=== PATIENT | female | born 1940 | race Caucasian/White ===

== ENCOUNTER → 2016-10-18 | Emergency (ER) | payer MEDICARE ==
[~2016-10-18] MED LIST: cefTRIAXone\\ROCEPHIN 1 GM VIAL ONE
[2016-10-18 15:50] LABS: #Basophils 0.1 thou/uL (0.0-0.2); #Eosinphils 0.2 thou/uL (0.0-0.7); #Lymphocytes 2.3 thou/uL (1.20-3.40); #Monocytes 0.8 thou/uL (0.11-0.59); #Neutrophils 7.3 thou/uL (1.40-6.50); %Basophils 0.7 % (0.0-1.0); Hematocrit 42.7 % (36.0-47.0); Mean Platelet Volume 5.7 fL (7.4-10.4); Red Blood Cell (RBC) Count 4.49 mill/uL (4.20-5.40); White Blood Cell (WBC) Count 10.7 thou/uL (4.8-10.8)
[2016-10-18 15:55] LABS: PTT 26.6 SEC (22.9-36.1); Prothrombin Time 12.9 SEC (12.0-14.7)
[2016-10-18 15:55] LABS: Bilirubin Negative (Negative); Blood, Urine Trace (Negative); Glucose, Urine (Dipstick) Negative (Negative); Ketone, Urine Negative (Negative); Nitrite Positive (Negative); Protein, Urine (Dipstick) Negative (Neg-Trace); Urobilinogen 0.2 mg/dL (0.2-1.0)
[2016-10-18 16:04] LABS: Bacteria/HPF 3+ HPF (None Seen); Hyaline Casts/LPF NONE SEEN LPF (0-3 Hyaline); Oval Fat Bodies/HPF None Seen HPF (None Seen); RBC/HPF 0-3 HPF (0-3); Renal Epithelial None Seen HPF (0-3); Sperm/HPF None Seen HPF (None Seen); Squamous Epithelial None Seen HPF (0-3); Transitional Epithelial NONE SEEN HPF (0-3); Trichomonas/HPF None Seen HPF (None Seen); Yeast-All Forms None Seen HPF (None Seen)
[2016-10-18 16:04] LABS: ALT (SGPT) 16 U/L (0-55); AST (SGOT) 21 U/L (5-34); Alkaline Phosphatase 86 U/L (40-150); Anion Gap 12 mmol/L (10-20); BUN (Urea Nitrogen) 13 mg/dL (9.8-20.1); Bilirubin, Total 0.4 mg/dL (0.2-1.2); CK (CPK) 124 U/L (29-168); Calc. Creatinine Clearance 0 mL/min (70-130); Calcium 9.3 mg/dL (7.8-10.44); Carbon Dioxide 29 mmol/L (23-31); Chloride 101 mmol/L (98-107); Estimated GFR-MDRD 65; Globulin 3.2 g/dL (2.4-3.5); Lipase 55 U/L (8-78); Protein, Total 7.3 g/dL (5.8-8.1)
[2016-10-18 16:05] LABS: Troponin I Less than 0.010 ng/mL (< 0.028)
--- NOTE | 2016-10-18 21:48 | RAD ---
PORTABLE CHEST: Date: 10-18-16 An AP portable film at 1527 is compared with a 05-28-11 study from [facility]. FINDINGS: Cardiomegaly is about the same as before. I do not see any pulmonary edema. The vessels are probab ly not congested. It is difficult to evaluate the left lateral hemithorax as the patient is turned slightly. There are no large effusions. IMPRESSION: Cardiomegaly without definite acute finding. POS: HOME
== END ==
LOC: BURERS 14:48
DX: N10 Acute pyelonephritis (principal); F41.9 Anxiety disorder, unspecified
CPT/HCPCS: 71010; 80053; 81003; 81015; 82553; 83690; 83880; 84484; 85025; 85379; 85610; 85730; 87040; 87077; 87086; 87186; 93005; 96365; 96375; J0696; J2270

== ENCOUNTER 2016-10-24 20:37 | Inpatient (IN) | payer MEDICARE ==
[2016-10-24] MEDS ORDERED: Ondansetron HCl/PF 4 MG/2 ML Vial ONE (21:02)
[2016-10-24] MEDS ORDERED: Sodium Chloride 0.9% 100 ML ONE (21:02)
[2016-10-24] MEDS ORDERED: cefTRIAXone\\ROCEPHIN 1 GM VIAL ONE (21:02)
[2016-10-24 21:34] LABS: #Basophils 0.1 thou/uL (0.0-0.2); #Eosinphils 0.1 thou/uL (0.0-0.7); #Lymphocytes 1.1 thou/uL (1.20-3.40); #Monocytes 0.9 thou/uL (0.11-0.59); #Neutrophils 8.5 thou/uL (1.40-6.50); %Basophils 0.8 % (0.0-1.0); %Eosinophils 0.7 % (0.0-10.0); %Monocytes 8.4 % (0.0-10.0); Hematocrit 36.8 % (36.0-47.0); Mean Platelet Volume 5.8 fL (7.4-10.4); Red Blood Cell (RBC) Count 3.97 mill/uL (4.20-5.40); White Blood Cell (WBC) Count 10.6 thou/uL (4.8-10.8)
[2016-10-24 21:53] LABS: ALT (SGPT) 19 U/L (0-55); AST (SGOT) 32 U/L (5-34); Alkaline Phosphatase 84 U/L (40-150); Anion Gap 18 mmol/L (10-20); BUN (Urea Nitrogen) 12 mg/dL (9.8-20.1); Bilirubin, Total 0.5 mg/dL (0.2-1.2); Calc. Creatinine Clearance 0 mL/min (70-130); Calcium 9.3 mg/dL (7.8-10.44); Carbon Dioxide 19 mmol/L (23-31); Chloride 96 mmol/L (98-107); Estimated GFR-MDRD 59; Globulin 3.4 g/dL (2.4-3.5); Protein, Total 7.3 g/dL (5.8-8.1)
[2016-10-24] MEDS ORDERED: Acetaminophen 325 MG TAB PO PRN (23:10)
[2016-10-24] MEDS ORDERED: Ondansetron ODT 4 MG TAB SL PRN (23:10)
[2016-10-24] MEDS ORDERED: Ondansetron HCl/PF 4 MG/2 ML Vial IVP PRN (23:10)
[2016-10-24] MEDS ORDERED: ALPRAZolam 0.5 MG TAB PO SCH (23:45)
[2016-10-25] MEDS: Dextrose 5 %-0.45 % NaCl 1,000 ML IV SCH ×2 (00:07→12:18)
--- NOTE | 2016-10-25 00:24 | RAD ---
PORTABLE CHEST: Date: 10-24-16 FINDINGS: AP portable film at 2050 is compared with the 10-18-16 study. There has been interval change in the interval. Mild cardiomegaly is about the same as before. The re is no clear congestive change. Elevation of the left hemidiaphragm is chronic. One could argue that there may be a little haziness in the left lower chest, but it would probably take a CT in this patient to completely rule out any infiltrate or pathology here. There are no large effusions. Th e trachea is midline. IMPRESSION: 1. Mild cardiomegaly. 2. Equivocal slight haziness in the left base. POS: HOME
[2016-10-25 06:20] LABS: #Basophils 0.1 thou/uL (0.0-0.2); #Eosinphils 0.2 thou/uL (0.0-0.7); #Lymphocytes 1.1 thou/uL (1.20-3.40); #Monocytes 0.8 thou/uL (0.11-0.59); #Neutrophils 4.5 thou/uL (1.40-6.50); %Eosinophils 3.3 % (0.0-10.0); Hematocrit 33.7 % (36.0-47.0); Mean Platelet Volume 5.5 fL (7.4-10.4); Red Blood Cell (RBC) Count 3.63 mill/uL (4.20-5.40); White Blood Cell (WBC) Count 6.7 thou/uL (4.8-10.8)
[2016-10-25 07:24] LABS: Anion Gap 15 mmol/L (10-20); BUN (Urea Nitrogen) 8 mg/dL (9.8-20.1); Calc. Creatinine Clearance 63 mL/min (70-130); Calcium 8.2 mg/dL (7.8-10.44); Carbon Dioxide 21 mmol/L (23-31); Chloride 103 mmol/L (98-107); Estimated GFR-MDRD 72
[2016-10-25] MEDS ORDERED: Acetaminophen 325 MG TAB PO PRN (08:47)
[2016-10-25] MEDS: Aspirin 325 MG TAB PO SCH (10:28)
[2016-10-25] MEDS: Ezetimibe 10 MG TAB PO SCH (10:28)
[2016-10-25] MEDS: Metoprolol Tartrate 25 MG TAB PO SCH ×2 (10:28→21:59)
[2016-10-25] MEDS: Atorvastatin Calcium 40 MG TAB PO SCH (10:29)
[2016-10-25] MEDS: Multivitamin W/ Minerals 1 TAB PO SCH (10:30)
[2016-10-25] MEDS: ALPRAZolam 0.5 MG TAB PO PRN ×2 (13:59→22:00)
[2016-10-25] MEDS: cefTRIAXone\\ROCEPHIN 1 GM in Sodium Chloride 0.9% 100 ML IVPB SCH (21:59)
[2016-10-26] MEDS: Dextrose 5 %-0.45 % NaCl 1,000 ML IV SCH ×2 (01:21→14:16)
[2016-10-26 05:25] VITALS: BMI 27.3
[2016-10-26] MEDS: Atorvastatin Calcium 40 MG TAB PO SCH (08:04)
[2016-10-26] MEDS: Multivitamin W/ Minerals 1 TAB PO SCH (08:04)
[2016-10-26] MEDS: Aspirin 325 MG TAB PO SCH (08:04)
[2016-10-26] MEDS: Metoprolol Tartrate 25 MG TAB PO SCH ×2 (08:05→20:20)
[2016-10-26] MEDS: ALPRAZolam 0.5 MG TAB PO PRN ×2 (08:05→20:19)
[2016-10-26] MEDS: Ezetimibe 10 MG TAB PO SCH (08:05)
[2016-10-26] MEDS: cefTRIAXone\\ROCEPHIN 1 GM in Sodium Chloride 0.9% 100 ML IVPB SCH (20:24)
[2016-10-26] MEDS ORDERED: Donepezil HCl 10 MG TAB PO SCH (21:00)
[2016-10-27] MEDS: Dextrose 5 %-0.45 % NaCl 1,000 ML IV SCH (01:15)
[2016-10-27 06:32] VITALS: BP 145/74; TEMP 97.6
[2016-10-27] MEDS: Metoprolol Tartrate 25 MG TAB PO SCH (09:17)
[2016-10-27] MEDS: Aspirin 325 MG TAB PO SCH (09:17)
[2016-10-27] MEDS: Atorvastatin Calcium 40 MG TAB PO SCH (09:17)
[2016-10-27] MEDS: Multivitamin W/ Minerals 1 TAB PO SCH (09:18)
[2016-10-27] MEDS: ALPRAZolam 0.5 MG TAB PO PRN (09:18)
[2016-10-27] MEDS: Ezetimibe 10 MG TAB PO SCH (09:18)
== END 2016-10-27 13:30 | disposition home or self-care (01) | DRG 690 ==
LOC: BURERS 20:37 → BURMED 22:46
PROVIDERS: ADMIT Family Medicine; ATTEND Family Medicine
DX: N39.0 Urinary tract infection, site not specified (principal); E87.1 Hypo-osmolality and hyponatremia; G30.9 Alzheimer's disease, unspecified; F02.80 Dementia in other diseases classified elsewhere, unspecified severity, without behavioral disturbance, psychotic disturbance, mood disturbance, and anxiety; N12 Tubulo-interstitial nephritis, not specified as acute or chronic; F20.9 Schizophrenia, unspecified; R41.82 Altered mental status, unspecified; I10 Essential (primary) hypertension; I25.10 Atherosclerotic heart disease of native coronary artery without angina pectoris; F41.9 Anxiety disorder, unspecified; Z95.2 Presence of prosthetic heart valve; R11.2 Nausea with vomiting, unspecified; Z79.82 Long term (current) use of aspirin
CPT/HCPCS: 36415; 51701; 71010; 80048; 80053; 83605; 83690; 85025; 87040; 87086; 94760; 96361; 96365; 96375; A4216; A4353; J0696; J2405; J7050

== ENCOUNTER 2016-10-30 08:04 | Emergency (ER) | payer MEDICARE ==
[2016-10-30 08:31] LABS: Bilirubin Negative (Negative); Blood, Urine Trace (Negative); Glucose, Urine (Dipstick) Negative (Negative); Ketone, Urine Negative (Negative); Nitrite Negative (Negative); Protein, Urine (Dipstick) Negative (Neg-Trace); Urobilinogen 0.2 mg/dL (0.2-1.0)
[2016-10-30 08:39] LABS: RBC/HPF 0-3 HPF (0-3); WBC/HPF None Seen HPF (0-3)
[2016-10-30 08:40] LABS: Bacteria/HPF Rare-Few HPF (None Seen); Hyaline Casts/LPF 0-3 HYALINE CAST LPF (0-3 Hyaline); Squamous Epithelial 0-3 HPF (0-3)
[2016-10-30 09:02] LABS: Lactic Acid - Sepsis 1.3 mmol/L (0.5-2.2)
[2016-10-30 09:06] LABS: ALT (SGPT) 22 U/L (0-55); AST (SGOT) 28 U/L (5-34); Alkaline Phosphatase 91 U/L (40-150); Anion Gap 16 mmol/L (10-20); BUN (Urea Nitrogen) 5 mg/dL (9.8-20.1); Bilirubin, Total 0.6 mg/dL (0.2-1.2); Calc. Creatinine Clearance 0 mL/min (70-130); Calcium 9.8 mg/dL (7.8-10.44); Carbon Dioxide 23 mmol/L (23-31); Chloride 101 mmol/L (98-107); Estimated GFR-MDRD 68; Globulin 3.8 g/dL (2.4-3.5); Lipase 49 U/L (8-78); Protein, Total 7.9 g/dL (5.8-8.1)
[2016-10-30 09:12] LABS: Mean Platelet Volume 5.3 fL (7.4-10.4); Neutrophil 78 % (42-75); Red Blood Cell (RBC) Count 4.44 mill/uL (4.20-5.40); White Blood Cell (WBC) Count 9.4 thou/uL (4.8-10.8)
--- NOTE | 2016-10-30 10:33 | CT ---
CT ABDOMEN AND PELVIS WITH CONTRAST: Date: 10/30/[address] of the abdomen and pelvis was performed for evaluation of lower abdominal and back pain. A xial slices were acquired after giving IV contrast. Oral contrast was withheld by request. Coronal r econstructions were done. FINDINGS: The lung bases are clear, except for some areas of scarring and atelectasis in the lower lobes. Ther e may even be a trace of bronchiectasis in the posterior portion of the right lower lobe. The liver, spleen, pancreas, adrenal glands, kidneys, and abdominal aorta showed no acute findings. Arteriosclerotic change is seen in the aorta. There has been a prior cholecystectomy. There is a moderate amount of fluid in the colon, especially the right colon, but it is not signific antly distended. There is certainly no sign of karla obstruction. No free air or free fluid seen. No bowel wall thickening was appreciated. The colon is rather redundant. A small, fat-filled ventral h ernia is seen in the midline at about the L2 level. CT of the pelvis was remarkable for a very distended urinary bladder. No pelvic masses were seen. No inflammatory changes or free fluid were evident. Regarding the lumbar spine, there is certainly some degenerative change and perhaps a little bit of ligamentous hypertrophy and concentric disc bulge at L4-L5, but there is no severe spinal stenosis o r obvious protruding discs to explain the patient's back pain. IMPRESSION: 1. Significantly distended urinary bladder. 2. Nonspecific fluid-filled colon without evidence of obstruction. POS: HOME
== END 2016-10-30 10:18 | disposition home or self-care (01) ==
LOC: BURERS 08:04
DX: M54.5 Low back pain (principal); T36.8X5A Adverse effect of other systemic antibiotics, initial encounter; E78.5 Hyperlipidemia, unspecified; E78.00 Pure hypercholesterolemia, unspecified; I10 Essential (primary) hypertension; I25.10 Atherosclerotic heart disease of native coronary artery without angina pectoris; F41.9 Anxiety disorder, unspecified; Z79.2 Long term (current) use of antibiotics; Z79.82 Long term (current) use of aspirin; Z79.899 Other long term (current) drug therapy
CPT/HCPCS: 51702; 74177; 80053; 81003; 81015; 83605; 83690; 85025; 87086; A4353

== ENCOUNTER 2017-01-23 20:34 | Emergency (ER) | payer MEDICARE ==
[2017-01-23 21:17] LABS: #Basophils 0.1 thou/uL (0.0-0.2); #Eosinphils 0.3 thou/uL (0.0-0.7); #Lymphocytes 2.4 thou/uL (1.20-3.40); #Monocytes 0.8 thou/uL (0.11-0.59); #Neutrophils 7.8 thou/uL (1.40-6.50); %Basophils 0.8 % (0.0-1.0); %Eosinophils 3.1 % (0.0-10.0); %Lymphocytes 20.8 % (21.0-51.0); %Monocytes 6.8 % (0.0-10.0); %Neutrophils 68.6 % (42.0-75.0); Hemoglobin 13.5 g/dL (12.0-16.0); Mean Corpuscular Hemoglobin 30.7 pg (27.0-31.0); Mean Corpuscular Volume 92.9 fl (81.0-99.0); Mean Platelet Volume 7.6 fL (7.4-10.4); Platelet Count 280 thou/uL (130-400); RBC Distribution Width 13.5 % (11.5-14.5); Red Blood Cell (RBC) Count 4.41 mill/uL (4.20-5.40); White Blood Cell (WBC) Count 11.3 thou/uL (4.8-10.8)
[2017-01-23 21:25] LABS: INR-International Normal Ratio 1.2; PTT 27.5 SEC (22.9-36.1); Prothrombin Time 15.4 SEC (12.0-14.7)
[2017-01-23 21:33] LABS: ALT (SGPT) 21 U/L (8-55); AST (SGOT) 28 U/L (5-34); Albumin 3.9 g/dL (3.4-4.8); Alkaline Phosphatase 97 U/L (40-150); Anion Gap 17 mmol/L (10-20); BUN (Urea Nitrogen) 18 mg/dL (9.8-20.1); Bilirubin, Total 0.3 mg/dL (0.2-1.2); Calc. Creatinine Clearance 0 mL/min (70-130); Calcium 9.1 mg/dL (7.8-10.44); Carbon Dioxide 21 mmol/L (23-31); Chloride 104 mmol/L (98-107); Estimated GFR-MDRD 63; Globulin 3.2 g/dL (2.4-3.5); Glucose 124 mg/dL (83-110); Potassium 4.3 mmol/L (3.5-5.1); Protein, Total 7.1 g/dL (6.0-8.3); Sodium 138 mmol/L (136-145)
[2017-01-23 21:34] LABS: CKMB 1.7 ng/mL (0-6.6); Troponin I Less than 0.010 ng/mL (< 0.028)
[2017-01-23 21:57] LABS: Bilirubin Negative (Negative); Blood, Urine Negative (Negative); Clarity Clear (Clear); Glucose, Urine (Dipstick) Negative (Negative); Leukocyte Negative (Negative); Nitrite Negative (Negative); Protein, Urine (Dipstick) Negative (Neg-Trace); Specific Gravity, Urine 1.015 (1.005-1.030); Urobilinogen 0.2 mg/dL (0.2-1.0)
--- NOTE | 2017-01-23 23:04 | CT ---
CT BRAIN WITHOUT CONTRAST: Comparison: 01-09-17 History: Dizziness. Fall a few hours ago. Technique: Multiple contiguous axial images were obtained in a CT of the brain without contrast. FINDINGS: There are scattered hypodensities in subcortical and periventricular white matter, likely secondary to small vessel ischemic disease. Diffuse atrophy is seen. There is no evidence of hydrocephalus, in tracranial hemorrhage, or extraaxial fluid collections. The calvarium and overlying soft tissues are unremarkable. The visualized paranasal sinuses and mast oid air cells are well aerated. IMPRESSION: No evidence of acute intracranial abnormality. POS: [facility]
--- NOTE | 2017-01-23 23:07 | CT ---
CT OF THE CERVICAL SPINE WITHOUT CONTRAST: Comparison: None. History: Fell a few hours ago after she was dizzy. Neck pain. Technique: Multiple contiguous axial images were obtained in a CT of the cervical spine without con trast. Sagittal and coronal reformats were performed. FINDINGS: Moderate degenerative changes were seen in the cervical spine. The vertebral bodies demonstrate norm al height and alignment without fracture or subluxation. No prevertebral soft tissue swelling is see n. The posterior facets are well aligned. Normal alignment of the skull base with the cervical spine is seen. Scarring is seen in the lung apices. There is a calcified thyroid nodule in the right thyroid globe. IMPRESSION: 1. Degenerative changes of the cervical spine without acute osseous abnormality. POS: [facility]
--- NOTE | 2017-01-23 23:10 | CT ---
CT OF THE FACE WITHOUT CONTRAST: Comparison: None. History: Dizziness a few hours ago and fall with facial pain and trauma. Technique: Multiple contiguous axial images were obtained in a CT of the face without contrast. Sagi ttal and coronal reformats were performed. FINDINGS: No facial fractures identified. The paranasal sinuses are well aerated without opacification or muco alfredo thickening. The bilateral mastoid air cells are well aerated. The mandibular joints are symmetri c. The globes and retrobulbar soft tissues are unremarkable. Mild soft tissues swelling is seen in the forehead. IMPRESSION: No evidence of facial fracture. POS: [facility]
--- NOTE | 2017-01-23 23:11 | RAD ---
TWO VIEWS LEFT HUMERUS: Comparison: None. FINDINGS: Fall, left arm pain. FINDINGS: Two views of the left humerus shows no evidence of acute fracture or dislocation. No degenerative ch anges are seen in the elbow or shoulder. IMPRESSION: Unremarkable exam. POS: [facility]
--- NOTE | 2017-01-23 23:12 | RAD ---
SINGLE VIEW OF THE CHEST: Comparison: 01-08-17 History: Syncope. FINDINGS: Single view of the chest shows a normal sized cardiomediastinal silhouette. The patient is status po st sternotomy. There is no evidence of consolidation, mass, or pleural effusions. IMPRESSION: 1. No evidence of acute cardiopulmonary disease. POS: [facility]
--- NOTE | 2017-01-23 23:13 | RAD ---
THREE VIEWS LEFT HAND: Comparison: None. History: Left hand pain after fall. FINDINGS: Three views of the left hand shows no evidence of acute fracture or dislocation. No significant dege nerative changes are seen. No focal soft tissue swelling is seen. There is mild diffuse soft tissue swelling. IMPRESSION: No evidence of acute osseous abnormality. POS: [facility]
== END 2017-01-23 23:00 ==
LOC: BURERS 20:34
DX: R55 Syncope and collapse (principal); S60.222A Contusion of left hand, initial encounter; S80.02XA Contusion of left knee, initial encounter; S80.01XA Contusion of right knee, initial encounter; S00.83XA Contusion of other part of head, initial encounter; E78.5 Hyperlipidemia, unspecified; I10 Essential (primary) hypertension; I25.10 Atherosclerotic heart disease of native coronary artery without angina pectoris; Z79.899 Other long term (current) drug therapy; W17.89XA Other fall from one level to another, initial encounter
CPT/HCPCS: 51701; 70450; 70486; 71010; 72125; 80053; 81003; 82553; 83605; 84484; 85025; 85610; 85730; 93005; 94760; A4353

== ENCOUNTER 2018-12-25 13:40 | Emergency (ER) | payer MEDICARE ==
[2018-12-25 14:19] LABS: Bacteria/HPF 4+ HPF (None Seen); Bilirubin Negative (Negative); Blood, Urine Trace (Negative); Clarity Cloudy (Clear); Crystals/HPF None Seen HPF (Negative); Glucose, Urine (Dipstick) Negative (Negative); Hyaline Casts/LPF NONE SEEN LPF (0-3 Hyaline); Leukocyte Large (Negative); Nitrite Positive (Negative); Other Casts/LPF None Seen LPF (0-3 Hyaline); Oval Fat Bodies/HPF None Seen HPF (None Seen); Protein, Urine (Dipstick) 30 mg/dL (Neg-Trace); Renal Epithelial None Seen HPF (0-3); Specific Gravity, Urine 1.015 (1.005-1.030); Sperm/HPF None Seen HPF (None Seen); Squamous Epithelial 0-3 HPF (0-3); Transitional Epithelial NONE SEEN HPF (0-3); Trichomonas/HPF None Seen HPF (None Seen); Urobilinogen 0.2 mg/dL (0.2-1.0); Yeast-All Forms None Seen HPF (None Seen)
[2018-12-25] MEDS ORDERED: Cephalexin 500 MG CAP ONE (14:39)
== END 2018-12-25 16:00 | disposition home or self-care (01) ==
LOC: BURERS 13:40
DX: N12 Tubulo-interstitial nephritis, not specified as acute or chronic (principal); E78.5 Hyperlipidemia, unspecified; I10 Essential (primary) hypertension; I25.10 Atherosclerotic heart disease of native coronary artery without angina pectoris; F03.90 Unspecified dementia, unspecified severity, without behavioral disturbance, psychotic disturbance, mood disturbance, and anxiety; F41.9 Anxiety disorder, unspecified; F20.9 Schizophrenia, unspecified; Z79.82 Long term (current) use of aspirin; Z79.899 Other long term (current) drug therapy
CPT/HCPCS: 81003; 81015; 87077; 87086; 87186; 99283

== ENCOUNTER 2019-01-01 12:45 | Outpatient (CLI) | payer MEDICARE ==
--- NOTE | 2019-01-01 21:23 | RAD ---
THORACIC SPINE THREE VIEWS: Date: 01-01-19 FINDINGS: There is nearly complete collapse of a vertebrae at the thoracolumbar junction. It is most likely L1. There is complete loss of height anteriorly and minimal height remaining posteriorly. There is a mil d anterior compression of the superior endplate of T11. This was present on a 10-30-16 scan of the [facility]. The mid to upper thoracic spine is not seen well but there is dorsal kyphosis and suggestion of the compression of T6. IMPRESSION: 1. Nearly complete anterior compression of the L1 vertebral body, there was slight compression of thi s vertebrae in 2017, thus, it has progressed markedly in the interval. 2. Minimal compression of the superior endplate of T11. No change from 2017. 3. Not see well, but probable significant compression of T6. Code T POS: HOME
== END 2019-01-01 12:46 | disposition home or self-care (01) ==
LOC: BURRAD 12:45
PROVIDERS: ATTEND Nurse Practitioner Family
DX: M54.6 Pain in thoracic spine (principal); Z91.81 History of falling
CPT/HCPCS: 72072

== ENCOUNTER 2019-01-12 10:41 | Emergency (ER) | payer MEDICARE ==
[2019-01-12] MEDS ORDERED: Bacitracin Zinc 1 Packet ONE (11:00)
[2019-01-12] MEDS ORDERED: Acetaminophen 500 MG TAB ONE (11:06)
--- NOTE | 2019-01-12 12:55 | RAD ---
PA AND LATERAL CHEST XRAY: DATE: 01/12/2019. HISTORY: Chest pain after a fall. COMPARISON: 01/23/2017. FINDINGS: Postsurgical changes related to median sternotomy are again noted. Vascular calcifications are again seen in a tortuous thoracic aorta. There are linear densities seen at each lung base which may be r elated to mild atelectasis versus scarring. No consolidation or pleural fluid is appreciated. Osteo penia is noted. There are severe wedge-shaped compression fractures involving the T6, T10, and L1 vertebral bodies with greater than 75% loss of height of these vertebral bodies. The degree of heigh t loss involving the fracture of T10 vertebral body has developed in the interim since the prior stud y on 01/01/2019 suggesting a more recent fracture. The vertebral body fractures of T6 and L1 which de monstrate greater than 75% loss of height are overall stable. There is a mild compression fracture i nvolving the superior end plate of the T11 vertebral body with a stable degree of height loss. IMPRESSION: 1. Probable linear scarring in the left mid lung zone and right lung base without definite acute car diopulmonary process. 2. Osteopenia. 3. Compression fractures of the thoracic and lumbar spine, the majority of which are stable compared to the study on 01/01/2019, but there has been interval development of a much greater degree of heigh t loss involving the compression fracture of the T10 vertebral body with approximately 75% height los s anteriorly. POS: [facility]
== END 2019-01-12 14:31 ==
LOC: BURERS 10:41
DX: S22.079A Unspecified fracture of T9-T10 vertebra, initial encounter for closed fracture (principal); J98.11 Atelectasis; E78.5 Hyperlipidemia, unspecified; I10 Essential (primary) hypertension; I25.10 Atherosclerotic heart disease of native coronary artery without angina pectoris; F03.90 Unspecified dementia, unspecified severity, without behavioral disturbance, psychotic disturbance, mood disturbance, and anxiety; F41.9 Anxiety disorder, unspecified; F20.9 Schizophrenia, unspecified; Z79.82 Long term (current) use of aspirin; Z79.899 Other long term (current) drug therapy; W19.XXXA Unspecified fall, initial encounter
CPT/HCPCS: 71046

== ENCOUNTER 2019-05-11 15:04 | Outpatient (CLI) | payer MEDICARE, MEDICAID ==
--- NOTE | 2019-05-11 16:53 | RAD ---
LEFT FOOT THREE VIEWS 05/11/19 Hallux valgus is present with a bunion deformity of the medial first metatarsal head. No fracture, betsy int abnormality, or acute bony change was seen. There is no evidence of bony destruction in the foot or toes. IMPRESSION: Hallux valgus as noted. POS: HOME
== END 2019-05-11 15:05 | disposition home or self-care (01) ==
LOC: BURRAD 15:04 → EEVIPCON 15:04 → BURRAD 15:05
PROVIDERS: ATTEND Podiatrist
DX: S99.922A Unspecified injury of left foot, initial encounter (principal); M79.675 Pain in left toe(s); M20.12 Hallux valgus (acquired), left foot

== ENCOUNTER 2020-04-11 07:10 | Outpatient (CLI) | payer MEDICARE, OTHER ==
[2020-04-11 07:28] LABS: Clarity Clear (Clear); Leukocyte Trace (Negative); Nitrite Negative (Negative); Protein, Urine (Dipstick) Negative (Neg-Trace); Specific Gravity, Urine 1.025 (1.005-1.030)
[2020-04-11 07:29] LABS: Bacteria/HPF Rare-Few HPF (None Seen); Bilirubin Negative (Negative); Blood, Urine Trace (Negative); Glucose, Urine (Dipstick) Negative (Negative); Ketone, Urine Negative (Negative); Squamous Epithelial 0-3 HPF (0-3); Urobilinogen 0.2 mg/dL (Less than 2)
== END 2020-04-11 07:11 | disposition home or self-care (01) ==
LOC: BURMANOR 07:10
PROVIDERS: ATTEND Registered Nurse Community Health
DX: N39.0 Urinary tract infection, site not specified (principal); R41.0 Disorientation, unspecified
CPT/HCPCS: 87086

== ENCOUNTER 2020-05-16 14:33 | Emergency (ER) | payer MEDICARE, OTHER ==
[2020-05-16 15:22] LABS: #Basophils 0.1 thou/uL (0.0-0.2); #Eosinphils 0.5 thou/uL (0.0-0.7); #Lymphocytes 1.9 thou/uL (1.20-3.40); #Monocytes 0.7 thou/uL (0.11-0.59); #Neutrophils 5.7 thou/uL (1.40-6.50); %Basophils 0.9 % (0.0-1.0); %Eosinophils 5.6 % (0.0-10.0); %Lymphocytes 21.3 % (21.0-51.0); %Monocytes 8.3 % (0.0-10.0); %Neutrophils 63.9 % (42.0-75.0); Hemoglobin 14.2 g/dL (12.0-16.0); Mean Corpuscular HGB CONC 30.4 g/dL (32.0-36.0); Mean Corpuscular Hemoglobin 30.1 pg (27.0-31.0); Mean Corpuscular Volume 99.2 fL (78.0-98.0); Mean Platelet Volume 6.4 fL (7.4-10.4); Platelet Count 248 thou/uL (130-400); RBC Distribution Width 12.9 % (11.5-14.5); Red Blood Cell (RBC) Count 4.71 mill/uL (4.20-5.40); White Blood Cell (WBC) Count 8.9 thou/uL (4.8-10.8)
[2020-05-16 15:38] LABS: ALT (SGPT) 16 U/L (8-55); AST (SGOT) 20 U/L (5-34); Alkaline Phosphatase 97 U/L (40-110); Anion Gap 14 mmol/L (10-20); BUN (Urea Nitrogen) 14 mg/dL (9.8-20.1); Bilirubin, Total 0.4 mg/dL (0.2-1.2); Calc. Creatinine Clearance 0 mL/min (70-130); Calcium 9.2 mg/dL (7.8-10.44); Carbon Dioxide 29 mmol/L (23-31); Chloride 104 mmol/L (98-107); Estimated GFR-MDRD 44; Globulin 3.2 g/dL (2.4-3.5); Glucose 111 mg/dL (83-110); Potassium 4.2 mmol/L (3.5-5.1); Protein, Total 7.2 g/dL (6.0-8.3); Sodium 143 mmol/L (136-145)
--- NOTE | 2020-05-16 16:35 | RAD ---
PORTABLE CHEST: 05/16/20 An AP portable film at 1531 is compared with a 01/12/19 study. Mild cardiomegaly is no different than before. The vessels are perhaps a little more prominent today than they were previously. No major pulmonary edema was seen. There are no effusions. Hazy areas in t he lower half of the left chest most likely relate to old or chronic parenchymal disease. There have been findings here on numerous prior films. The patient's trachea curves towards the right at the thoracic inlet. I do not know if there might be any thyroid pathology present. Consider further imaging, if needed. IMPRESSION: 1. Cardiomegaly. No clear CHF, though some of the vessels may be marginally dilated compared to before. 2. Haziness in the left lower chest, chronic. Probably not acute findings here. If clinical symp toms dictate, then serial follow-up films could be helpful. 3. Some deviation of the trachea at the thoracic inlet. See above. POS: HOME
--- NOTE | 2020-05-16 16:38 | CT ---
CT OF THE BRAIN WITHOUT CONTRAST: 05/16/20 Comparison is made with the 01/23/17 study. There has been no adverse interval change. Diffuse moderately severe atrophy with moderate compensato ry dilatation of the ventricles is about the same as before. 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 No acute stroke, mass, edema, or bleeding was seen. The skull is normal in appearanc e. The visible paranasal sinuses and mastoid air cells are clear. There is dense calcification in eac h vertebral artery. IMPRESSION: Atrophy and chronic ischemic changes but no acute intracranial findings. POS: HOME
== END 2020-05-16 16:30 ==
LOC: BURERS 14:33
DX: R55 Syncope and collapse (principal); E78.5 Hyperlipidemia, unspecified; E78.00 Pure hypercholesterolemia, unspecified; I10 Essential (primary) hypertension; I25.10 Atherosclerotic heart disease of native coronary artery without angina pectoris; F03.90 Unspecified dementia, unspecified severity, without behavioral disturbance, psychotic disturbance, mood disturbance, and anxiety; F41.9 Anxiety disorder, unspecified; F20.9 Schizophrenia, unspecified; Z79.82 Long term (current) use of aspirin; Z79.899 Other long term (current) drug therapy
CPT/HCPCS: 36415; 70450; 71045; 80053; 83880; 84484; 85025; 93005

== ENCOUNTER 2020-06-11 19:21 | Outpatient (CLI) | payer MEDICARE, MEDICAID ==
--- NOTE | 2020-06-11 21:02 | RAD ---
ABDOMEN ONE VIEW: 06/11/20 A single view shows a nonspecific bowel gas pattern with no greatly distended loops of bowel. The makenzie unt of fecal material was not excessive, nor was there any evidence of an impaction. No calcification s of concern were seen. The bones are osteopenic and there is some mild scoliosis of the lumbar spine . there may even be some vertebral compressions in the upper thoracic region, but a lateral view woul d be more specific. IMPRESSION: No definite acute finding. POS: HOME
--- NOTE | 2020-06-11 21:06 | RAD ---
LUMBAR SPINE THREE VIEWS: 06/11/20 Comparison is made with thoracic spine films from 01/01/19. Today's exam include the low thoracic spine, as well as the lumbar spine. A profound L1 anterior comp ression fracture is about the same as it was in 2019. A slight anterior compression of T11 appears n o different, however, there is a marked compression of the T10 vertebral body which is a new finding compared to last year. There is beginning to be a bit of scalloping of the end plates of L3 which cou ld signify the beginnings of some compression. L5 may be starting the same, but this is less definite . IMPRESSION: 1. Marked anterior compression of L1 an old finding and unchanged from last year. 2. Mild T11 compression, unchanged. 3. Marked T10 vertebral body compression, a new finding since last year. Code T POS: HOME
== END 2020-06-11 19:22 | disposition home or self-care (01) ==
LOC: BURRAD 19:21
PROVIDERS: ATTEND Registered Nurse Community Health
DX: M54.5 Low back pain (principal); G95.20 Unspecified cord compression
CPT/HCPCS: 72100; 74018

== ENCOUNTER 2020-08-06 14:44 | Outpatient (CLI) | payer MEDICARE, OTHER ==
[2020-08-06 15:42] LABS: #Basophils 0.1 thou/uL (0.0-0.2); #Eosinphils 0.2 thou/uL (0.0-0.7); #Lymphocytes 1.2 thou/uL (1.20-3.40); #Monocytes 0.5 thou/uL (0.11-0.59); #Neutrophils 6.4 thou/uL (1.40-6.50); %Basophils 0.9 % (0.0-1.0); %Eosinophils 2.1 % (0.0-10.0); %Lymphocytes 14.4 % (21.0-51.0); %Monocytes 6.1 % (0.0-10.0); %Neutrophils 76.6 % (42.0-75.0); Hemoglobin 14.7 g/dL (12.0-16.0); Mean Corpuscular HGB CONC 31.2 g/dL (32.0-36.0); Mean Corpuscular Hemoglobin 29.6 pg (27.0-31.0); Mean Corpuscular Volume 94.9 fL (78.0-98.0); Mean Platelet Volume 7.6 fL (7.4-10.4); Platelet Count 280 thou/uL (130-400); RBC Distribution Width 13.7 % (11.5-14.5); Red Blood Cell (RBC) Count 4.97 mill/uL (4.20-5.40); White Blood Cell (WBC) Count 8.4 thou/uL (4.8-10.8)
[2020-08-06 16:34] LABS: ALT (SGPT) 39 U/L (8-55); AST (SGOT) 55 U/L (5-34); Albumin 3.3 g/dL (3.4-4.8); Alkaline Phosphatase 99 U/L (40-110); Anion Gap 15 mmol/L (10-20); BUN (Urea Nitrogen) 18 mg/dL (9.8-20.1); Bilirubin, Total 0.8 mg/dL (0.2-1.2); Calc. Creatinine Clearance 0 mL/min (70-130); Calcium 8.6 mg/dL (7.8-10.44); Carbon Dioxide 27 mmol/L (23-31); Chloride 103 mmol/L (98-107); Globulin 3.2 g/dL (2.4-3.5); Glucose 118 mg/dL (83-110); Potassium 3.8 mmol/L (3.5-5.1); Protein, Total 6.5 g/dL (6.0-8.3); Sodium 141 mmol/L (136-145)
[2020-08-06 18:26] LABS: Bilirubin Negative (Negative); Blood, Urine Small (Negative); Clarity Clear (Clear); Glucose, Urine (Dipstick) Negative (Negative); Ketone, Urine Negative (Negative); Leukocyte Large (Negative); Nitrite Positive (Negative); Protein, Urine (Dipstick) Trace mg/dL (Neg-Trace); Urobilinogen 0.2 mg/dL (Less than 2)
[2020-08-06 18:33] LABS: Bacteria/HPF 2+ HPF (None Seen); Other Microscopic Description C&S SET UP; WBC/HPF Greater Than 50 HPF (0-3)
== END 2020-08-06 14:45 | disposition home or self-care (01) ==
LOC: BURMANOR 14:44
PROVIDERS: ATTEND Family Medicine
DX: R41.82 Altered mental status, unspecified (principal)
CPT/HCPCS: 80053; 81001; 85025; 87077; 87086; 87186

== ENCOUNTER 2021-03-13 14:10 | Emergency (ER) | payer MEDICARE, MEDICAID ==
[2021-03-13 16:16] LABS: Bilirubin Negative (Negative); Blood, Urine Trace (Negative); Clarity Clear (Clear); Glucose, Urine (Dipstick) Negative (Negative); Ketone, Urine Negative (Negative); Leukocyte Negative (Negative); Nitrite Negative (Negative); Protein, Urine (Dipstick) Negative (Neg-Trace); Specific Gravity, Urine 1.025 (1.005-1.030); Urobilinogen 0.2 mg/dL (Less than 2); pH, Urine 5.5 (5.0-9.0)
[2021-03-13 16:17] LABS: #Basophils 0.1 thou/uL (0.0-0.2); #Eosinphils 0.2 thou/uL (0.0-0.7); #Lymphocytes 2.3 thou/uL (1.20-3.40); #Monocytes 0.9 thou/uL (0.11-0.59); #Neutrophils 9.7 thou/uL (1.40-6.50); %Basophils 0.5 % (0.0-1.0); %Eosinophils 1.2 % (0.0-10.0); %Lymphocytes 17.4 % (21.0-51.0); %Monocytes 6.5 % (0.0-10.0); %Neutrophils 74.4 % (42.0-75.0); Hemoglobin 14.9 g/dL (12.0-16.0); Mean Corpuscular HGB CONC 32.6 g/dL (32.0-36.0); Mean Corpuscular Hemoglobin 32.5 pg (27.0-31.0); Mean Corpuscular Volume 99.4 fL (78.0-98.0); Mean Platelet Volume 6.2 fL (7.4-10.4); Platelet Count 249 thou/uL (130-400); RBC Distribution Width 12.6 % (11.5-14.5); Red Blood Cell (RBC) Count 4.58 mill/uL (4.20-5.40)
[2021-03-13 16:27] LABS: Bacteria/HPF None Seen HPF (None Seen); RBC/HPF 0-3 HPF (0-3); Squamous Epithelial 0-3 HPF (0-3); WBC/HPF 0-3 HPF (0-3)
[2021-03-13 16:31] LABS: ALT (SGPT) 28 U/L (8-55); AST (SGOT) 47 U/L (5-34); Albumin 3.8 g/dL (3.4-4.8); Alkaline Phosphatase 74 U/L (40-110); Anion Gap 14 mmol/L (10-20); BUN (Urea Nitrogen) 16 mg/dL (9.8-20.1); Bilirubin, Total 0.5 mg/dL (0.2-1.2); Calc. Creatinine Clearance 0 mL/min (70-130); Calcium 8.9 mg/dL (7.8-10.44); Carbon Dioxide 24 mmol/L (23-31); Chloride 108 mmol/L (98-107); Globulin 2.7 g/dL (2.4-3.5); Glucose 112 mg/dL (83-110); Potassium 3.9 mmol/L (3.5-5.1); Protein, Total 6.5 g/dL (5.8-8.1); Sodium 142 mmol/L (136-145)
== END 2021-03-13 17:23 | disposition home or self-care (01) ==
LOC: BURERS 14:10
DX: M25.551 Pain in right hip (principal); E78.5 Hyperlipidemia, unspecified; E78.00 Pure hypercholesterolemia, unspecified; I10 Essential (primary) hypertension; I25.10 Atherosclerotic heart disease of native coronary artery without angina pectoris; W19.XXXA Unspecified fall, initial encounter
CPT/HCPCS: 36415; 51701; 71045; 72170; 80053; 81003; 81015; 83880; 85025; 93005

== ENCOUNTER 2025-07-30 09:11 | Inpatient (IN) | payer MEDICAID, MEDICARE, OTHER ==
[2025-07-30 09:54] LABS: Hematocrit 53.6 % (36.0-47.0); Hemoglobin 15.7 g/dL (12.0-16.0); Mean Corpuscular Hemoglobin 26.3 pg (27.0-31.0); Mean Corpuscular Volume 89.9 fl (78.0-98.0); Platelet Count 216 10x3/uL (130-400); Red Blood Cell (RBC) Count 5.96 mill/uL (4.20-5.40); White Blood Cell (WBC) Count 20.0 10x3/uL (4.8-10.8)
[2025-07-30 10:17] LABS: Troponin I 0.070 ng/mL (< 0.028)
[2025-07-30 10:24] LABS: ALT (SGPT) 35 U/L (Less than 34); AST (SGOT) 44 U/L (11-34); Albumin 2.6 g/dL (3.1-4.5); Alkaline Phosphatase 108 U/L (40-110); Anion Gap 23 mmol/L (10-20); BUN (Urea Nitrogen) 95 mg/dL (9.8-20.1); Bilirubin, Total 0.5 mg/dL (0.3-1.2); Calc. Creatinine Clearance 0 mL/min (70-130); Calcium 8.2 mg/dL (7.8-10.44); Carbon Dioxide 16 mmol/L (23-31); Chloride 129 mmol/L (98-107); Globulin 4.5 g/dL (2.4-3.5); Glucose 137 mg/dL (83-110); Lipase 22 U/L (8-78); Potassium 4.8 mmol/L (3.5-5.1); Sodium 163 mmol/L (136-145)
[2025-07-30 10:36] LABS: Glucose, Urine (Dipstick) Negative (Negative); Leukocyte Large (Negative); Protein, Urine (Dipstick) > or equal to 300 mg/dL (Neg-Trace); Specific Gravity, Urine 1.025 (1.005-1.030)
[2025-07-30 10:38] LABS: Anisocytosis SLIGHT = 6-15 cells (100X) (0-5/hpf); Crenated RBC SLIGHT = 1-5 cells (100X) (None Seen); MDiff Complete? YES; Ovalocytes SLIGHT = 2-5 cells (100X) (0-1/hpf); Platelet Adequacy Comment Appears Adequate
[2025-07-30 10:46] LABS: Bacteria/HPF 4+ HPF (None Seen); CAUTI Indications for Culture Alt mental st,lethar; RBC/HPF 21-50 HPF (0-3); WBC/HPF 21-50 HPF (0-3)
[2025-07-30 10:47] LABS: Urine Culture Reflex Yes Yes
[2025-07-30] MEDS ORDERED: Ondansetron PF 4 MG/2 ML Vial IVP PRN (14:46)
[2025-07-30] MEDS ORDERED: Bisacodyl 10 MG SUPP PR PRN (14:47)
[2025-08-01 05:27] VITALS: TEMP 97.6
[2025-08-01] MEDS: Scopolamine 1 mg/72 hour Patch TOP PRN (08:50)
[2025-08-01 09:15] VITALS: BP 92/59
[2025-08-01] MEDS ORDERED: Scopolamine 1 mg/72 hour Patch TOP PRN (11:50)
== END 2025-08-01 14:30 | disposition expired | DRG 951 ==
LOC: BURERS 09:11 → BURMED 14:00
PROVIDERS: ADMIT Family Medicine; ATTEND Family Medicine
DX: Z51.5 Encounter for palliative care (principal); E87.1 Hypo-osmolality and hyponatremia; N17.9 Acute kidney failure, unspecified; Z66 Do not resuscitate; E78.5 Hyperlipidemia, unspecified; I10 Essential (primary) hypertension; I25.10 Atherosclerotic heart disease of native coronary artery without angina pectoris; Z98.890 Other specified postprocedural states; F41.9 Anxiety disorder, unspecified; F20.9 Schizophrenia, unspecified; Z88.8 Allergy status to other drugs, medicaments and biological substances; E86.0 Dehydration
CPT/HCPCS: 36415; 71045; 80053; 81001; 83605; 83690; 83880; 84484; 85025; 87077; 87086; 87186; 96360; J2060; J2270; J2272